=== PATIENT | male | born 1950 | race African-American/Black ===

== ENCOUNTER 2019-02-24 21:07 | Emergency (ER) | payer OTHER ==
[~2019-02-24] VITALS: Ht 180.3 cm; Wt 122.5 kg
[2019-02-24 21:09] VITALS: BP 170/70
[2019-02-24] MEDS ORDERED: LISINOPRIL5 MG PO (21:14)
[2019-02-24] MEDS ORDERED: FOR CHOLESTEROL (21:14)
[2019-02-24] MEDS ORDERED: DOXYCYCLINE 10100 MG PO (21:29)
[2019-02-24] MEDS ORDERED: ULTRAM 50MG TAB50 MG PO (21:29)
== END 2019-02-24 21:52 | disposition home or self-care (01) ==
LOC: ER 21:07
DX: L02.415 Cutaneous abscess of right lower limb (principal); I10 Essential (primary) hypertension; E78.00 Pure hypercholesterolemia, unspecified; Z88.1 Allergy status to other antibiotic agents; W57.XXXA Bitten or stung by nonvenomous insect and other nonvenomous arthropods, initial encounter; Y93.89 Activity, other specified; Y92.89 Other specified places as the place of occurrence of the external cause; Y99.8 Other external cause status

== ENCOUNTER 2019-02-28 02:26 | Inpatient (IN) | payer OTHER ==
[~2019-02-28] VITALS: Ht 180.3 cm; Wt 114.9 kg
--- NOTE | ~2019-02-28 | HC ---
[facility] [place] [address] CONSULTATION Name: DIEGO KAY Room #: 418-P [facility] IN M.R.#: [id number] Admission: 02/28/19 Attend Phys: Emeterio Persaud MD Discharge: Date of : 50 Report #: [id number] THIS REPORT FOR: //name// CC: Hair Persaud DATE OF SERVICE: 02/28/2019 INFECTIOUS DISEASES CONSULTATION REASON FOR CONSULTATION: Evaluate right buttock abscess. HISTORY OF PRESENT ILLNESS: The patient is a 68-year-old with underlying history of coronary artery disease and hypertension 5 days ago, had the acute onset of pain involving his right buttock region. He noticed it while he was sleeping. No specific injury was identified prior to this. 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 He has had no other skin issues previously. He was seen in the Emergency Room several days ago and placed on doxycycline and tramadol. Pain has worsened along with fever up to 102 degrees. He has had chills. No nausea or vomiting. He has been constipated. No dysuria or frequency. No cough or sputum production. He has had no travel. ALLERGIES: Include ERYTHROMYCIN. MEDICATIONS: As noted on his MAR, having been given vancomycin. PAST MEDICAL HISTORY: Coronary artery disease, hyperlipidemia, hypertension, coronary bypass grafting. FAMILY HISTORY: Noncontributory. SOCIAL HISTORY: Nonsmoker, no significant alcohol intake. REVIEW OF SYSTEMS: Ten-point review was negative other than what has been described above. PHYSICAL EXAMINATION: VITAL SIGNS: Temperature was 37.8, hemodynamically stable. GENERAL: He was obese. SKIN: With a fairly large area of induration, erythema and marked tenderness involving the upper medial buttock region on the right. There was no extension into the anus as far as I can tell. His perianal region was supple. No other skin lesions or rash identified. No palpable adenopathy. HEENT: Eyes, without scleral icterus. Mouth without mucositis. NECK: Supple, with no thyromegaly or mass. LUNGS: Clear. [facility] [address] [place] [address] CONSULTATION Name: DIEGO KAY Room #: 418-P [facility] IN M.R.#: [id number] Admission: 02/28/19 Attend Phys: Emeterio Persaud MD Discharge: Date of : 50 Report #: [id number] HEART: Regular, without murmur, gallop or rub. ABDOMEN: Soft, nontender, no hepatosplenomegaly or mass. GENITAL: Without lesion. EXTREMITIES: Without clubbing, cyanosis or edema. NEUROLOGIC: Cranial nerves intact. Strength in upper and lower extremities normal. Sensation intact. PSYCHIATRIC: Mood normal. LABORATORY STUDIES: Hemoglobin 11.6, white count 10.6, creatinine 1.1, platelet count 174,000. CRP 307, lactate 1.1. Ultrasound showed right buttock 1 cm phlegmonous change, possible abscess with evidence of a sinus tract to the skin surface. IMPRESSION: A 68-year-old with soft tissue abscess, right buttock region. Typically, this would be a staphylococcal infection. In the region of the right buttock, it could be a polymicrobial infection. The patient has a fasting glucose of 134. No prior history of diabetes. RECOMMENDATIONS: Continue antibiotic program with vancomycin and Unasyn. General Surgery evaluation for incision and drainage. Continue with heat for now. Check hemoglobin A1c. We will adjust antibiotics pending cultures. Check blood cultures as well. By: [id number] Alejandro Weems MD /nt
[~2019-02-28 02:26] MED LIST: DOXYCYCLINE 10100 MG PO; FOR CHOLESTEROL; LISINOPRIL5 MG PO; ULTRAM 50MG TAB50 MG PO
[2019-02-28 02:28] VITALS: BP 138/74
[2019-02-28] MEDS ORDERED: LIPITOR40 MG PO (02:41)
[2019-02-28 05:12] LABS: CALCIUM 9.3 mg/dL (8.5-10.1); CREATININE 1.1 mg/dL (0.7-1.3); POTASSIUM 3.3 mmol/L (3.5-5.1)
[2019-02-28 05:24] LABS: HEMOGLOBIN 11.6 gm/dL (14.0-18.0); MCHC 34.3 g/dL (28.0-37.0); RBC 3.98 mil/uL (4.50-6.00)
[2019-02-28 05:29] LABS: ABSOLUTE NEUTROPHILS 8.4 thou/uL (1.4-8.2); BASOPHILS 0.3 % (0.0-2.0); EOSINOPHILS 0.7 % (0.0-3.0); HEMATOCRIT 33.8 % (42.0-52.0); LYMPHOCYTES 10.5 % (24.0-44.0); MCH 29.1 pg (26.0-34.0); MCV 84.9 fL (80.0-100.0); MONOCYTES 8.9 % (1.0-8.0); PLATELET COUNT 174 thou/uL (150-400); POLYS 79.6 % (36.0-66.0); RDW 14.2 % (10.5-14.5); WBC 10.6 thou/uL (4.0-11.0)
[2019-02-28 06:40] VITALS: BP 133/56
[2019-02-28 07:10] VITALS: BP 163/62
[2019-02-28 10:21] LABS: MAGNESIUM 2.1 mg/dL (1.8-2.4)
--- NOTE | 2019-02-28 12:24 | NUR ---
DR BOWMAN IN PATIENTS ROOM TO DO I&D AT [facility] ASO CULTURE AT THIS TIME
--- NOTE | 2019-02-28 14:13 | NUR ---
ASSESSMENT-PT LIVES AT HOME WITH HIS SIGNIFICANT OTHER. BOTH ARE INDEPENDENT OF ADLS AND AMBULATION. BOTH DRIVE. PT VOICES NO CONCERNS RELATED TO DC AT THIS TIME. PT SAYS HE HAS NOT HAD ANY HH SERVICES IN THE PAST. FOLLOWING TO ASSIST WITH DC PLANNING.
--- NOTE | 2019-02-28 15:03 | NUR ---
PT ADMITTED TO UNIT ROOM 418 AT 0655. PT ALERT XS 4. ADMISSION PAPERWORK COMPLETED. PT GIVEN PO MEDDS AND IV FLUIDS INFUSING ORDERED. WOUND CULTURE SENT TO LAB FROM BUTTOCK/ BACK AREA THAT DR BOWMAN DID INCISION THIS AM IN PATIENTS ROOM.
[2019-02-28 16:36] VITALS: BP 126/56
[2019-02-28 19:34] VITALS: BP 130/53
[2019-03-01] VITALS (7 sets, daily range): BP systolic 115–146; BP diastolic 56–82
--- NOTE | 2019-03-01 05:50 | NUR ---
ASSUMED CARE AROUND 1899. AXOX4. R UPPER BUTTOCK DRESSING WAS SOILED DRAINAGE UPON INITIAL ASSESSSMENT. DRESSING CHANGED AT BEDSIDE. TOLERATED WELL AND PAIN MANAGED PER MD ORDER. PT C/O DIZZINESS WITH URINATION. REPORTED TO FUNDRAISING CONSULTANT DE ICER. 1 TIME OF MECLIZINE AND ORTHOSTATIC HYPOTENSTION WAS TAKEN AT BEDSIDE. RESULTS COMMUNICATED TO FUNDRAISING CONSULTANT WITH NNO AT THIS TIME. NO S/S ACUTE DISTRESS NOTED OR REPORTED AT THIS TIME. WILL CONT TO MONITOR FOR ANY CHANGES IN CONDITION.
[2019-03-01 05:54] LABS: ABSOLUTE NEUTROPHILS 6.4 thou/uL (1.4-8.2); BASOPHILS 0.3 % (0.0-2.0); EOSINOPHILS 2.3 % (0.0-3.0); HEMATOCRIT 32.2 % (42.0-52.0); HEMOGLOBIN 11.1 gm/dL (14.0-18.0); LYMPHOCYTES 13.3 % (24.0-44.0); MCH 29.3 pg (26.0-34.0); MCHC 34.3 g/dL (28.0-37.0); MCV 85.3 fL (80.0-100.0); MONOCYTES 9.1 % (1.0-8.0); PLATELET COUNT 184 thou/uL (150-400); RBC 3.78 mil/uL (4.50-6.00); RDW 13.8 % (10.5-14.5); WBC 8.6 thou/uL (4.0-11.0)
[2019-03-01 06:00] LABS: CALCIUM 9.3 mg/dL (8.5-10.1); CREATININE 1.1 mg/dL (0.7-1.3); MAGNESIUM 1.8 mg/dL (1.8-2.4); POTASSIUM 3.4 mmol/L (3.5-5.1)
--- NOTE | 2019-03-02 03:08 | NUR ---
The pts, dressing rt. buttocks clean, dry and intact. He received pain medication as requested and it was effective. He is A/O x 4, cooperative, and uses the urinal at bedside. 2 Antibiotics infusing tonite per orders in SL left hand. Fall prevention measures are in place.
[2019-03-02 03:58] VITALS: BP 121/55
[2019-03-02 06:08] LABS: ABSOLUTE NEUTROPHILS 4.1 thou/uL (1.4-8.2); BASOPHILS 0.4 % (0.0-2.0); EOSINOPHILS 3.4 % (0.0-3.0); HEMATOCRIT 32.9 % (42.0-52.0); HEMOGLOBIN 11.2 gm/dL (14.0-18.0); LYMPHOCYTES 19.5 % (24.0-44.0); MCH 29.1 pg (26.0-34.0); MCHC 34.1 g/dL (28.0-37.0); MCV 85.2 fL (80.0-100.0); MONOCYTES 10.2 % (1.0-8.0); PLATELET COUNT 197 thou/uL (150-400); POLYS 66.5 % (36.0-66.0); RBC 3.86 mil/uL (4.50-6.00); WBC 6.1 thou/uL (4.0-11.0)
[2019-03-02 09:52] VITALS: BP 114/50
--- NOTE | 2019-03-02 12:11 | NUR ---
ASSESMENT COMPLETED. VSS. A/O. PAIN MANAGED BY MEDS ORDERED. NO NOTED SOA. NO NV. PT RESTING IN BED. VOIDS PER URINAL. DRESSING TO RIGHT BUTTOCK CDI. SWITCHED TO PO ABX. ANTICIPATING DC HOME TODAY.
[2019-03-02] MEDS ORDERED: LINEZOLID600 MG PO (12:24)
[2019-03-02] MEDS ORDERED: AUGMENTIN400 MG/53 PER TUBE (12:24)
[2019-03-02] MEDS ORDERED: TYLENOL EXTRA500 MG PO (15:06)
[2019-03-02 15:22] VITALS: BP 114/50
--- NOTE | 2019-03-02 16:16 | NUR ---
DISCHARGE INSTRUCTIONS GIVEN TO PT. PT VERBALIZED UNDERSTANDING. DRESSING CHANGED ORDERED. PT DCD HOME IN STABLE CONDITION.
== END 2019-03-02 16:00 | disposition home or self-care (01) | DRG 603 ==
LOC: ER 02:26 → EROBS 06:31 → 4E 06:31 → EROBS 06:31 → 4E 06:49 → ENTRNSPT 03-02 16:04
PROVIDERS: Emergency Medicine; Nurse Practitioner; ADMIT Hospitalist
PROC: 0Y900ZZ Drainage of Right Buttock, Open Approach (ICD-10-PCS; principal; 2019-02-28)
DX: L02.31 Cutaneous abscess of buttock (principal); L03.317 Cellulitis of buttock; I10 Essential (primary) hypertension; E78.00 Pure hypercholesterolemia, unspecified; I25.10 Atherosclerotic heart disease of native coronary artery without angina pectoris; E78.5 Hyperlipidemia, unspecified; E87.6 Hypokalemia; Z79.899 Other long term (current) drug therapy; Z95.1 Presence of aortocoronary bypass graft; Z88.1 Allergy status to other antibiotic agents
CPT/HCPCS: 10084